=== PATIENT | male | born 1995 | race Caucasian/White ===

== ENCOUNTER 2021-12-14 13:52 | Emergency (ER) | payer SELFPAY ==
[~2021-12-14] VITALS: Ht 172.7 cm; Wt 102.3 kg
[2021-12-14 14:35] LABS: BASOPHILS % (AUTO) 0.1 % (0-1); EOSINOPHILS # (AUTO) 0.1 X10'3 (0-0.9); EOSINOPHILS % (AUTO) 1.2 % (0-6); HEMATOCRIT 43.3 % (42.0-52.0); HEMOGLOBIN 14.9 g/dl (14.0-17.9); LYMPHOCYTES # (AUTO) 0.5 X10'3 (1.1-4.8); LYMPHOCYTES % (AUTO) 5.1 % (21-51); MEAN CORPUSCULAR HEMOGLOBIN 27.6 PG (27.0-31.0); MEAN CORPUSCULAR HGB CONC 34.3 g/dL (33.0-36.5); MEAN CORPUSCULAR VOLUME 80.5 FL (78-98); MEAN PLATELET VOLUME 9.4 FL (7.4-10.4); MONOCYTES # (AUTO) 0.7 X10'3 (0-0.9); MONOCYTES % (AUTO) 7.5 % (2-12); NEUTROPHILS # (AUTO) 8.3 X10'3 (1.8-7.7); NEUTROPHILS % (AUTO) 86.1 % (42-75); PLATELET COUNT 236 X10'3 (140-440); RED BLOOD COUNT 5.38 X10'6 (4.70-6.10); RED CELL DISTRIBUTION WIDTH 13.6 % (11.5-14.5); WHITE BLOOD COUNT 9.7 X10'3 (4.5-11.0)
[2021-12-14 14:52] LABS: ALANINE AMINOTRANSFERASE 150 U/L (12-78); ALBUMIN 4.1 G/DL (3.4-5.0); ALBUMIN/GLOBULIN RATIO 1.1 (1.1-1.5); ALKALINE PHOSPHATASE 117 IU/L (46-116); ANION GAP 11 (8-16); ASPARTATE AMINO TRANSFERASE 70 U/L (10-37); BILIRUBIN,TOTAL 1.4 MG/DL (0.1-1.0); BLOOD UREA NITROGEN 9 MG/DL (7-18); BUN/CREATININE RATIO 10.2 (5.4-32.0); CALCIUM 9.2 MG/DL (8.5-10.1); CHLORIDE 98 MMOL/L (99-107); CREATININE 0.88 MG/DL (0.60-1.10); GLUCOSE 97 MG/DL (70-104); SODIUM 137 MMOL/L (135-145); TOTAL CARBON DIOXIDE 28.4 MMOL/L (24-32); TOTAL PROTEIN 7.8 G/DL (6.4-8.2); eGFR > 90 ML/MIN
[2021-12-14] MEDS ORDERED: CefTRIAXone 1000mg IM Kit (w/lidocaine diluent) IM ONE (15:30)
[2021-12-14] MEDS ORDERED: iohexol 300mg/ml 100ml inj. ONE (16:42)
[2021-12-14 17:12] VITALS: BP 131/85
[2021-12-14] MEDS ORDERED: CefTRIAXone/D5W-Rocephin 1gm 50 ML IV ONE (17:40)
[2021-12-14] MEDS ORDERED: PENI-88 PO (18:06)
== END 2021-12-14 18:52 | disposition home or self-care (01) ==
LOC: ER 13:53
DX: R74.8 Abnormal levels of other serum enzymes (principal); J03.90 Acute tonsillitis, unspecified; Z20.822 Contact with and (suspected) exposure to COVID-19
CPT/HCPCS: 36415; 70491; 80053; 85025; 87081; 87635; 87880; 96372; 99285; C9803; J0696; Q9967

== ENCOUNTER 2021-12-17 17:40 | Emergency (ER) | payer SELFPAY ==
[~2021-12-17] VITALS: Ht 172.7 cm; Wt 100.9 kg
[~2021-12-17 17:40] MED LIST: PENI-88 PO
[2021-12-17 17:52] VITALS: BP 150/96
[2021-12-17] MEDS ORDERED: ketorolac tromethamine 15mg/ml inj. IM ONE (20:00)
[2021-12-17 20:20] LABS: MONOTEST NEGATIVE (Neg)
== END 2021-12-17 20:40 | disposition home or self-care (01) ==
LOC: ER 17:41
DX: B34.9 Viral infection, unspecified (principal); R21 Rash and other nonspecific skin eruption; J02.9 Acute pharyngitis, unspecified; R74.8 Abnormal levels of other serum enzymes; R53.1 Weakness; Z79.2 Long term (current) use of antibiotics
CPT/HCPCS: 36415; 86308; 96372; 99283; J1885